=== PATIENT | male | born 1965 | race Caucasian/White ===

== ENCOUNTER 2020-03-25 08:14 | Outpatient (REF) | payer BC, SELFPAY | END 2020-03-25 08:15 | disposition home or self-care (01) | LOC: HO.HMGCLDS 08:14 | PROVIDERS: Visit Provider Internal Medicine | DX: Z20.828 Contact with and (suspected) exposure to other viral communicable diseases (principal) | CPT/HCPCS: 36415; 87635 ==

== ENCOUNTER 2022-11-29 15:36 | Outpatient (REF) | payer BC, SELFPAY ==
--- NOTE | ~2022-11-29 | XR_ITS ---
EXAMINATION: XR ANKLE, RIGHT CLINICAL INFORMATION: Contusion COMPARISON: None available. TECHNIQUE: AP, lateral, and mortise views of the right ankle. FINDINGS: Bone alignment is normal. No fracture or dislocation. The ankle mortise is normal. Small plantar calcaneal spur. Lateral soft tissue swelling. XR/XR ankle RT min 3V IMPRESSION: Lateral soft tissue swelling. No fracture.
== END 2022-11-29 15:37 | disposition home or self-care (01) ==
LOC: HO.HMGCX 15:36
PROVIDERS: Visit Provider Internal Medicine
DX: S90.01XA Contusion of right ankle, initial encounter (principal); X58.XXXA Exposure to other specified factors, initial encounter; Y93.9 Activity, unspecified; Y92.9 Unspecified place or not applicable; Y99.9 Unspecified external cause status
CPT/HCPCS: 73610

== ENCOUNTER 2023-07-11 13:04 | Emergency (ER) | payer OTHER, SELFPAY ==
[2023-07-11 13:25] VITALS: BP 130/80; PULSE 95; O2SAT 96
[2023-07-11 13:27] VITALS: BP 123/83; PULSE 69; RESP 16; TEMP 36.2; O2SAT 98; BMI 31.3
[2023-07-11 13:38] VITALS: TEMP 37.1
--- NOTE | 2023-07-11 13:51 | ED.GENADULT ---
HPI - General Adult General Chief complaint: Upper Respiratory Symptoms Stated complaint: FEVER,NAUSEA/VOMITING X3 DAYS PER EMS Time Seen by Provider: 07/11/23 13:31 Source: patient and EMS Mode of arrival: EMS Limitations: no limitations History of Present Illness HPI narrative: Patient is a 58-year-old male presenting to the emergency department with complaint of cough occasionally productive of clear sputum as well as diarrhea for the past 3 days. He reports sweats and chills but has not taken his temperature with a thermometer. Reports that he has diarrhea with any p.o. intake. Took a COVID test at home which was negative. Denies any abdominal pain. Denies any dysuria, frequency, hematuria or other urinary symptoms. Denies chest pain, dyspnea, palpitations. MD complaint: Diarrhea Onset (ago): day(s) Associated symptoms: fever/chills (Subjective) Treatments prior to arrival: none Related Data Home Medications Medication Instructions Recorded Confirmed amlodipine 5 mg tablet 5 mg PO DAILY 11/29/22 11/29/22 Previous Rx's Medication Instructions Recorded meloxicam 15 mg tablet 15 mg PO DAILY #14 tabs 11/29/22 Allergies Allergy/AdvReac Type Severity Reaction Status Date / Time No Known Allergies Allergy Verified 12/06/22 10:51 Review of Systems Review of Systems: As per HPI. Yes all other systems are reviewed and are negative Constitutional: Constitutional: Reports as per HPI [facility] Social History Social History Patient Tobacco Use Status: Never used Tobacco Advance Directives: No Advance Directives Information Provided: Yes Physical Exam ED Vital Signs: Vital Signs - 24 hr 07/11/23 13:27 07/11/23 13:38 Temperature 97.2 F 98.8 F Pulse Rate 69 Respiratory Rate 16 Blood Pressure 123/83 Pulse Oximetry 98 Oxygen Delivery Method Room Air BMI result Body Mass Index 31.3 Vital signs have been reviewed and appear to be correct. Blood pressure normal. Heart rate normal. Respiratory rate normal. Temperature normal. Oxygen saturation normal. Const General: cooperative, healthy appearing and no acute distress Orientation/consciousness: oriented to person, oriented to place, oriented to time and patient oriented x3 Limitations: no limitations HENMT Head: Yes normocephalic and Yes atraumatic Ears: external ears normal General nose exam: Normal external nose present Face and sinus: Yes face symmetric Mouth: oropharynx normal and moist mucous membranes Throat: Yes uvula midline Eyes Pupils: Equal, round and reactive pupils present Neck Neck: Yes normal visual inspection and Yes supple Resp Effort & Inspection: normal respiratory effort and able to speak in complete sentences Auscultation: clear to auscultation bilaterally Cardio Rate: regular rate Rhythm: regular rhythm Heart sounds: S1 normal heart sound present and S2 normal heart sound present GI Palpation (GI): Soft to palpation and nontender Auscultation: normoactive bowel sounds General: Yes no CVA tenderness Back/Spine/Pelvis Back: no CVA tenderness Skin General skin exam: elasticity normal and turgor normal Neuro General: oriented to person, oriented to place, oriented to time, patient oriented x3, moves all extremities, no focal motor deficits and CN's II-XI intact bilaterally Cranial nerves: Yes Equal, round and reactive pupils present Cognition (Neuro): normal cognition Extrem General: Yes full ROM, Yes no pedal edema and Yes no calf tenderness Psych Mental Status: mental status grossly normal Affect: normal affect Thought process: Normal thought process present Medical Decision Making Medical Decision Making [facility] Narrative: Patient is a 58-year-old male presenting to the emergency department with complaint of cough occasionally productive of clear sputum as well as diarrhea for the past 3 days. On exam patient is awake, A+Ox3, VS WNL, afebrile, nontoxic appearing, normal neurological exam without focal deficits, physical exam findings as above. Given reported symptoms and physical exam findings, initial differential includes viral illness, COVID, influenza, gastroenteritis. Do not suspect diverticulitis, obstruction, appendicitis. Influenza swab positive for flu A, patient updated on results. Discussed with patient that symptoms should resolve on their own with time and rest should ensure adequate fluid intake and adequate rest. Can alternate Tylenol and ibuprofen as needed for fever or discomfort. Discussed with patient drinking fluids with electrolytes. Return precautions discussed at bedside. Patient verbalized understanding and plan. Patient is outside the window for Tamiflu. Differential Diagnosis Differential Diagnoses: The differential diagnosis associated with the presentation includes As per [facility]. Lab Data [facility] Lab Attestation statement: I reviewed the patient's lab results. As per [facility] Labs: Lab Results 07/11/23 Range/Units 13:34 Influenza Type A ([facility]) Positive A (Negative) Influenza Type B ([facility]) Negative (Negative) Influenza A & B Note See Note External Record Review External record reviewed: Inpatient record, Office record and Outpatient record Prescription Management I considered prescription management with: Antiviral Discharge Plan Discharge Clinical Impression: Influenza Patient Disposition: Home, Self-Care Instructions: Influenza (DC), Flu Shot (Vaccine) for Adults (ED) Additional Instructions: You were evaluated in the emergency department today for cough and diarrhea. Your flu test was positive for influenza A. You should isolate at home for another 2 days and continue to wear mask or symptomatic after that. You were offered treatment with Tamiflu which you declined. Your symptoms should resolve over time with rest and fluids. You can take 650 mg Tylenol or 600 mg ibuprofen every 6 hours as needed for fever or pain. Please follow-up with your primary care provider for any ongoing symptoms. Return to the emergency department if you develop worsening pain, fever not controlled with Tylenol and ibuprofen, chest pain, dizziness or lightheadedness, or any other concerning symptoms. Prescriptions: No Action amlodipine 5 mg tablet 5 mg PO DAILY meloxicam 15 mg tablet 15 mg PO DAILY Qty: 14 0RF
[2023-07-11 14:15] LABS: IDNOW Serial# 9DB6401D; Influenza A Positive (Negative); Influenza B2 Negative (Negative)
[2023-07-11 14:23] LABS: COVID-19 Test Negative (Negative); IDNOW Serial# 08D9AD1C
[2023-07-11 14:31] VITALS: BP 143/87; PULSE 82; RESP 12; TEMP 36.4; O2SAT 95
[2023-07-11 14:53] VITALS: O2SAT 97
== END 2023-07-11 14:51 | disposition home or self-care (01) ==
PROVIDERS: Emergency Provider Emergency Medicine
DX: J10.1 Influenza due to other identified influenza virus with other respiratory manifestations (principal); Z11.52 Encounter for screening for COVID-19
CPT/HCPCS: 87502; 87635; 99283; 99284

== ENCOUNTER 2023-08-08 11:16 | Emergency (ER) | payer OTHER, SELFPAY ==
[2023-08-08 11:28] VITALS: BP 124/79; PULSE 75; RESP 16; TEMP 36.2; O2SAT 97; BMI 34.4
--- NOTE | 2023-08-08 11:28 | ED.UPPEXIN ---
HPI - Extremity Injury (Upper) General Chief Complaint: Extremity Injury, Upper Stated Complaint: Infected finger Time Seen by Provider: 08/08/23 11:36 Source: patient, RN notes reviewed and old records reviewed Mode of arrival: ambulatory History of Present Illness HPI narrative: 58-year-old male with no significant past medical history presenting the complaining of right index infection x1 week. Denies known injury/trauma or fall. Reports slight drainage earlier in the week. Denies fever, numbness/tingling MD complaint: injury to: finger Related Data Home Medications Medication Instructions Recorded Confirmed amlodipine 5 mg tablet 5 mg PO DAILY 11/29/22 11/29/22 Previous Rx's Medication Instructions Recorded meloxicam 15 mg tablet 15 mg PO DAILY #14 tabs 11/29/22 cephalexin 500 mg capsule 500 mg PO QID 7 days #28 caps 08/08/23 Allergies Allergy/AdvReac Type Severity Reaction Status Date / Time No Known Allergies Allergy Verified 08/08/23 11:28 Review of Systems Review of Systems: Constitutional: No Fever, No Chills ENT/Mouth: No Ear Pain, No Rhinorrhea, No Swallowing Difficulty Cardiovascular: No Chest Pain, No SOB Respiratory: No Cough, No Sputum, No Wheezing Skin: + Skin Lesions, No rash Neuro: No Weakness, No Numbness, No Paresthesias Yes all other systems are reviewed and are negative Constitutional: Constitutional: Reports as per [facility] Past Medical History Attestation statement: The following information was validated with the patient. Source: old records reviewed Social History Social History Patient Tobacco Use Status: Never used Tobacco Physical Exam Vital Signs: Vital Signs: Last Vital Signs Temp 97.1 F 08/08/23 11:28 Pulse 75 08/08/23 11:28 Resp 16 08/08/23 11:28 BP 124/79 08/08/23 11:28 Pulse Ox 97 08/08/23 11:28 O2 Del Method Room Air 08/08/23 11:28 BMI result Body Mass Index 34.4 Const: General: cooperative, healthy appearing and no acute distress Orientation/consciousness: patient oriented x3 Limitations: no limitations HEENT: Head: Yes normal to inspection and Yes atraumatic Ears: hearing grossly normal bilaterally General nose exam: Normal external nose present Face and sinus: Yes normal facial exam Eyes: General: appearance normal, both eyes and all related structures EOM: EOMs intact bilaterally Neck: Neck: Yes normal visual inspection and Yes no meningeal signs Resp: Effort & Inspection: normal respiratory effort and no respiratory distress Cardio: Rate: regular rate Skin: Other: +right index finger paronychia noted with erythema and ttp. No active drainage Wounds: no wounds Neuro: General: patient oriented x3, tone normal and no meningeal signs Cranial nerves: Yes CN's II-XII intact bilaterally Gait exam (Neuro): Normal gait present Extrem: General: Yes normal to inspection Course Course Course Narrative: -I&D performed at bedside with small amount of pus expressed Results discussed with patient including worrisome signs and symptoms and strict return precautions, and when to return to the emergency department. They verbalized understanding and feel safe for discharge at this time. Medical Decision Making Medical Decision Making [facility] Narrative: 58-year-old male with no significant past medical history presenting the complaining of right index infection x1 week. On exam VSS, NAD, nontoxic appearing, paronychia noted to right index finger with early cellulitis. Low suspicion for osteomyelitis, phelon Plan: I & D, p.o. antibiotics Please refer to course for remaining clinical decision making, interpretation of labs/imaging results, and discussions with consultants and/or family members. Differential Diagnosis Differential Diagnoses: The differential diagnosis associated with the presentation includes As above External Record Review External record reviewed: Inpatient record, Office record, Outpatient record, Prior outpatient labs, Prior outpatient radiology, Primary care record and Outside ED record Tests considered The following testing was considered but not selected: As above Prescription Management I considered prescription management with: Pain Medication and Antibiotic Procedures Abscess I/D Site: hand Side (if applicable): right Technique: incised with blade Irrigation: No Packing used?: none Discharge Plan Discharge Clinical Impression: Paronychia of finger Patient Disposition: Home, Self-Care Instructions: Paronychia (ED) Additional Instructions: Keflex as an antibiotic please take as prescribed Apply warm compresses/soaks to the area 3-4 times daily If redness is spreading, fever, increasing pain or swelling return to the ED Follow-up with your doctor Prescriptions: New cephalexin 500 mg capsule 500 mg PO QID 7 Days Qty: 28 0RF No Action amlodipine 5 mg tablet 5 mg PO DAILY meloxicam 15 mg tablet 15 mg PO DAILY Qty: 14 0RF Referrals: Physician,Unknown J [Primary Care Provider] - 1 week
== END 2023-08-08 11:42 | disposition home or self-care (01) ==
PROVIDERS: Emergency Provider Emergency Medicine
DX: L03.011 Cellulitis of right finger (principal)
CPT/HCPCS: 10060; 99282; 99284